=== PATIENT | female | born 1985 | race Caucasian/White ===

== ENCOUNTER 2017-03-24 08:15 | Emergency (ER) | payer OTHER ==
[~2017-03-24] VITALS: Ht 149.9 cm; Wt 53.7 kg
[2017-03-24 08:19] VITALS: TEMP 36.9; Ht 149.9 cm; Wt 53.7 kg
--- NOTE | 2017-03-24 09:48 | DIAGNOSTIC IMAGING REPORT ---
L FOOT MIN 3 VIEWS ROUTINE CLINICAL HISTORY: LEFT, 5TH TOE FX COMPARISON STUDY: None. FINDINGS: Mild soft tissue swelling within the left fifth toe. There is fusion of the DIP joint of the fifth toe. No fractures identified. There is lateral subluxation/dislocation at the interphalangeal joint of the fifth toe. This demonstrates up to 2 mm of lateral displacement. IMPRESSION: Lateral subluxation/dislocation at the interphalangeal joint of the fifth toe. No fractures. Electronically signed by: Ryan Hairston M.D. 03/24/2017 9:47 AM Dictated Date/Time: 03/24/2017 9:45 AM
[2017-03-24] MEDS ORDERED: HYDR-5688 PO (10:27)
--- NOTE | 2017-03-24 10:29 | EMERGENCY ROOM VISIT NOTE ---
ED Visit Note First contact with patient: 08:23 CHIEF COMPLAINT: Left 5th toe injury last night HISTORY OF PRESENT ILLNESS: Patient is a healthy 31-year-old white female who presents the emergency department for evaluation of left fifth toe pain. She kicked a basket last evening, she states that her fourth and fifth toes were by the edge of the basket. She states that the fifth toe was slightly crooked, but strained a little bit. It is swollen, and bruised. She tried ice, lelo taping and ibuprofen. She is able to bear weight. She complains of pain that she rates a 9/10. There was no laceration or bleeding. REVIEW OF SYSTEMS: Review of systems as per HPI. All other systems reviewed were negative. At least 6 systems reviewed. PMH: Electronic medical records are reviewed and summarized as above/below. See Problem List. SOCIAL HISTORY: Patient lives at home. Employed. PHYSICAL EXAM: Vital Signs: Reviewed Nurse's notes. The ankle joint is not swollen or tender. The foot is not swollen and the skin is intact. The left fifth is swollen and tender along the shaft from the PIP joint to the tip. It has slight lateral deviation. There is no active bleeding and no laceration. EMERGENCY DEPARTMENT COURSE: X-rays of the left fifth toe were obtained, and noted a possible subluxation at the IP joint without evidence for acute fracture. I did discuss performing a reduction with the patient which she adamantly refused. She was comfortable lelo taping, and felt that as the pain and swelling went down, the toe would resume to normal position. She was lelo taped and placed in a postoperative shoe. [place] to use for pain. She was advised that she can follow-up with orthopedics if she does not feel that her symptoms are improving. Medication reconciliation: I attest that I have personally reviewed the patient' s current medication list. Blood pressure screening : Patient was found to have normal blood pressure on screening and does not require follow-up. Patient was reviewed in the [facility] Prescription Drug Monitoring Program, and there were no red flags noted. L FOOT MIN 3 VIEWS ROUTINE CLINICAL HISTORY: LEFT, 5TH TOE FX COMPARISON STUDY: None. FINDINGS: Mild soft tissue swelling within the left fifth toe. There is fusion of the DIP joint of the fifth toe. No fractures identified. There is lateral subluxation/dislocation at the interphalangeal joint of the fifth toe. This demonstrates up to 2 mm of lateral displacement. IMPRESSION: Lateral subluxation/dislocation at the interphalangeal joint of the fifth toe. No fractures. Current/Historical Medications Scheduled PRN Hydrocodone/Acetaminophen 5MG/325MG ([place] 5MG/325MG), 1-2 TABLETS PO Q4 PRN for Pain Allergies Coded Allergies: No Known Allergies (Unverified , 03/24/17) Vital Signs Date Time Temp Pulse Resp B/P (MAP) Pulse Ox O2 Delivery O2 Flow Rate FiO2 03/24/17 10:54 86 18 109/59 100 03/24/17 10:12 71 18 116/58 100 Room Air 03/24/17 08:19 36.9 91 18 116/59 100 Room Air Departure Information Impression Primary Impression: Injury of toe on left foot Prescriptions Hydrocodone/Acetaminophen 5MG/325MG ([place] 5MG/325MG) Tab 1-2 TABLETS PO Q4 Y for Pain, #15 TAB For Initial Treatment Prov: Zulma Gilmore PA 03/24/17 Referrals Julian Chacko M.D. (PCP) Patient Instructions [facility] Additional Instructions Hydrocodone/Acetaminophen ([place]) 5/325 mg: Take 1-2 pills every four hours for breakthrough pain. Avoid alcohol, operating machinery or dangerous equipment, working on ladders or roofs, DRIVING, or situations where being under the influence may be dangerous. It is recommended to use an uiei-itb-jxrmmel stool softener such as Colace, 100mg twice daily while taking this medication to avoid constipation. Ibuprofen(Motrin, Advil) may be used for fever or pain. Use 600mg every six hours as needed. Take with food. Avoid using more than 2400mg in a 24 hour period. Do not use 2400mg per day for more than three consecutive days without physician direction. Prolonged inappropriate use can lead to stomach upset or ulcers. This medication can be taken if you need to drive, work, or perform activities which may be dangerous when taking narcotic pain medication. (AND/OR) Acetaminophen(Tylenol) may be used for fever or pain. Use 1000mg every six hours as needed. Avoid using more than 3000mg in a 24 hour period. This medication can be taken if you need to drive, work, or perform activities which may be dangerous when taking narcotic pain medication. Ice compresses for 20 minutes at a time four times daily for 2-3 days. Use the lelo tape and postoperative shoe as instructed. Rest and elevate your injury. Continue current medications. Return to the ER immediately for any numbness, tingling, severe pain, extreme swelling in the extremity or as needed. Follow-up with orthopedics if needed. Problem Qualifiers Primary Impression: Injury of toe on left foot Encounter type: initial encounter Qualified Codes: S99.922A - Unspecified injury of left foot, initial encounter
[2017-03-24 10:54] VITALS: BP 109/59; PULSE 86; O2SAT 100
== END 2017-03-24 10:55 | disposition home or self-care (01) ==
LOC: C.EDB 08:17 → C.EDA 10:55
DX: S93.102A Unspecified subluxation of left toe(s), initial encounter (principal); W21.89XA Striking against or struck by other sports equipment, initial encounter